=== PATIENT | male | born 1965 ===

== ENCOUNTER 2018-03-18 08:33 | Emergency (ER) | payer BC ==
--- NOTE | 2018-03-18 08:54 | ED PDOC ---
HPI: General Adult Time Seen by Provider: 03/18/18 08:40 Chief Complaint (Nursing): Chest Pain Chief Complaint (Provider): palpitations History Per: Patient, EMS History/Exam Limitations: no limitations Current Symptoms Are (Timing): Still Present Additional Complaint(s): 53-year-old male, with a past medical history of hypercholesterolemia, brought in by EMS to the emergency department complaining of palpitations associated with lightheadedness. Denies chest pain. Denies shortness of breath. Pt reports previous episodes of palpitations. Pt reports he was seen by PMD with negative work up. PMD: Provider TBD Past Medical History Reviewed: Historical Data, Nursing Documentation, Vital Signs Vital Signs: Last Vital Signs Temp 97.8 F 03/18/18 08:51 Pulse 69 03/18/18 10:09 Resp 19 03/18/18 10:09 BP 124/77 03/18/18 10:09 Pulse Ox 100 03/18/18 10:21 - Medical History PMH: Hypercholesterolemia - Surgical History Surgical History: No Surg Hx - Family History Family History: States: Unknown Family Hx - Home Medications Home Medications: Ambulatory Orders Medication Instructions Recorded Non-Formulary 1 ea .ROUTE Q6 #1 ea 03/18/18 Non-Formulary 1 ea .ROUTE Q6 #1 ea 03/18/18 - Allergies Allergies/Adverse Reactions: Allergies Allergy/AdvReac Type Severity Reaction Status Date / Time No Known Allergies Allergy Verified 03/18/18 08:49 Review of Systems ROS Statement: Except As Marked, All Systems Reviewed And Found Negative Cardiovascular: Positive for: Palpitations, Light Headedness. Negative for: Chest Pain Respiratory: Negative for: Shortness of Breath Physical Exam - Reviewed Nursing Documentation Reviewed: Yes Vital Signs Reviewed: Yes - Physical Exam Appears: Positive for: Well, Non-toxic, No Acute Distress Head Exam: Positive for: ATRAUMATIC, NORMAL INSPECTION, NORMOCEPHALIC Skin: Positive for: Normal Color, Warm, Dry Eye Exam: Positive for: EOMI, Normal appearance, PERRL ENT: Positive for: Normal ENT Inspection Neck: Positive for: Normal Cardiovascular/Chest: Positive for: Regular Rate, Rhythm Respiratory: Positive for: Normal Breath Sounds Gastrointestinal/Abdominal: Positive for: Normal Exam, Soft. Negative for: Tenderness Back: Positive for: Normal Inspection Extremity: Positive for: Normal ROM. Negative for: Deformity Neurologic/Psych: Positive for: Alert, Oriented (x 3) - Laboratory Results Result Diagrams: 03/18/18 09:00 03/18/18 09:00 - ECG O2 Sat by Pulse Oximetry: 100 (NC) Pulse Ox Interpretation: Normal Medical Decision Making Medical Decision Making: Time: 08:48 Plan: - EKG - CMP - T4 - TSH - Troponin I - CBC (with differential) Thyroxine (T4) Reveals 9.56 ug/dl [within range] TSH Reveals 2.22mIU/ML [within range] Recommend rest and no work until f/u with [facility] Scribe Attestation: Documented by Jamal Patten, acting as a scribe for Eulalio Montalvo MD Provider Scribe Attestation: All medical record entries made by the Scribe were at my direction and personally dictated by me. I have reviewed the chart and agree that the record accurately reflects my personal performance of the history, physical exam, medical decision making, and the department course for this patient. I have also personally directed, reviewed, and agree with the discharge instructions and disposition. Disposition - Clinical Impression Clinical Impression: Palpitations - Patient ED Disposition Is Patient to be Admitted: No Counseled Patient/Family Regarding: Studies Performed, Diagnosis, Need For Followup, Rx Given - Disposition Referrals: [facility] [Outside] Ursula Lubin MD [Staff Provider] - Disposition: Routine/Home Disposition Time: 10:23 Condition: FAIR Prescriptions: Non-Formulary 1 ea .ROUTE Q6 #1 ea Non-Formulary 1 ea .ROUTE Q6 #1 ea Instructions: Palpitations Forms: [employer] ([employer]), [facility] ED School/Work Excuse
[2018-03-18 09:26] LABS: BASO % 0.4 % (0.0-2.0); EOS % 0.8 % (0.0-4.0); HEMOGLOBIN 15.3 g/dL (12.0-18.0); LYMPH # 1.2 K/uL (1.0-4.3); LYMPH % 22.9 % (20.0-40.0); MEAN CELL VOLUME 87.5 fl (80.0-94.0); MEAN CORPUSCULAR HEMOGLOBIN 30.1 pg (27.0-31.0); MEAN CORPUSCULAR HGB CONC 34.4 g/dL (33.0-37.0); MEAN PLATELET VOLUME 9.3 fl (7.2-11.7); MONO # 0.5 K/uL (0.0-0.8); MONO % 8.6 % (0.0-10.0); NEUT # 3.5 K/uL (1.8-7.0); NEUT % 67.3 % (50.0-75.0); NRBC % 0.1 % (0.0-0.0); RBC 5.07 Mil/uL (4.40-5.90); RED CELL DISTRIBUTION WIDTH 13.8 % (11.5-14.5); WHITE BLOOD COUNT 5.3 K/uL (4.8-10.8)
[2018-03-18 09:32] LABS: ALB/GLOB RATIO 1.3 (1.0-2.1); ALBUMIN 4.6 g/dL (3.5-5.0); CALCIUM 9.3 mg/dL (8.4-10.2); GFR NON-AFRICAN AMERICAN > 60
[2018-03-18 09:45] LABS: ALT/SGPT 45 U/L (21-72); AST/SGOT 48 U/L (17-59); BLOOD UREA NITROGEN 10 mg/dl (9-20)
[2018-03-18 09:49] LABS: T4 9.56 ug/dl (5.5-11.0)
[2018-03-18 10:10] VITALS: RESP 19
[2018-03-18 11:24] VITALS: BP 128/78; PULSE 78; TEMP 97; O2SAT 98
--- NOTE | 2018-03-19 20:22 | CARD ---
APPROVED REPORT Date of service: 03/18/2018 EKG Measurement Heart [id number] <Conclusion> Normal sinus rhythm Normal ECG
== END 2018-03-18 10:42 | disposition home or self-care (01) ==
LOC: H.ER 08:33
DX: R00.2 Palpitations (principal); E78.00 Pure hypercholesterolemia, unspecified